=== PATIENT | female | born 1995 | race Caucasian/White ===

== ENCOUNTER 2023-05-12 04:06 | Emergency (ER) | payer OTHER ==
[2023-05-12 04:32] VITALS: BP 111/72; PULSE 89; RESP 20; TEMP 98.1; BMI 23.8
== END 2023-05-12 05:44 | disposition home or self-care (01) ==
LOC: JER 04:06
DX: S50.812A Abrasion of left forearm, initial encounter (principal); S70.311A Abrasion, right thigh, initial encounter; V43.52XA Car driver injured in collision with other type car in traffic accident, initial encounter
CPT/HCPCS: 84703; 99283-25